=== PATIENT | male | born 1980 | race Caucasian/White ===

== ENCOUNTER 2021-07-31 12:01 | Outpatient (REF) | payer OTHER, SELFPAY | END 2021-07-31 12:02 | disposition home or self-care (01) | LOC: HO.LAB 12:01 | PROVIDERS: Visit Provider Internal Medicine | DX: Z20.822 Contact with and (suspected) exposure to COVID-19 (principal) | CPT/HCPCS: C9803; U0003; U0005 ==

== ENCOUNTER 2021-09-12 14:59 | Emergency (ER) | payer OTHER, SELFPAY ==
[2021-09-12 15:03] VITALS: BP 118/81; PULSE 94; RESP 16; TEMP 36.6; O2SAT 96; BMI 29.2
[2021-09-12 16:45] LABS: MANUAL DIFF FLAG NO
[2021-09-12 16:49] LABS: Basophils Percent Auto 0.3 % (0-2); Eosinophils Absolute Auto 0.1 X10*3/uL (0.0-0.4); Eosinophils Percent Auto 0.6 % (0-4); Hematocrit 43.2 % (42.0-52.0); Hemoglobin 14.3 g/dl (14.0-18.0); Imm Gran Abs Auto 0.04 X10*3/uL (0.00-0.03); Imm Gran Pct Auto 0.3 % (0.0-0.4); Lymphocytes Absolute Auto 0.7 X10*3/uL (1.2-4.9); Mean Corpuscular HGB Conc 33.1 g/dl (31.0-36.0); Mean Corpuscular Hemoglobin 27.4 pg (27.0-33.0); Mean Corpuscular Volume 82.9 fL (80.0-98.0); Mean Platelet Volume 9.1 fL (9.4-12.4); Monocytes Absolute Auto 0.4 X10*3/uL (0.1-1.2); Monocytes Percent Auto 3.3 % (2-11); Neutrophils Absolute Auto 10.7 x10*3/uL (2.0-8.3); Neutrophils Percent Auto 89.5 % (45-73); Platelet Count 480 X10*3/uL (160-400); Red Blood Count 5.21 X10*6/uL (4.60-5.80); Red Cell Distribution Width 12.8 % (11.0-16.0)
[2021-09-12 16:54] LABS: Appearance Urine CLEAR; Color Urine YELLOW; Glucose Urine UA NEG (NEG); Leukocyte Esterase Urine NEG (NEG); Nitrite Urine NEG (NEG); UACC Culture Trigger NO; Urine Blood NEG (NEG); Urine Ketones NEG (NEG); Urine Protein 1+ MG/DL (NEG-TRACE)
[2021-09-12 17:01] LABS: Alanine Aminotransferase 27 U/L (0-40); Albumin Level 4.9 g/dL (3.5-5.0); Alkaline Phosphatase 75 U/L (39-117); Anion Gap 10 (12-20); Aspartate Amino Transferase 26 U/L (5-37); Bilirubin Direct 0.3 mg/dL (0.0-0.5); Bilirubin Total 0.7 mg/dL (0.0-1.0); Blood Urea Nitrogen 25 mg/dL (9-16); Calcium 10.2 mg/dL (8.4-10.2); Carbon Dioxide 30 mmol/L (22-29); Chloride 104 mmol/L (96-108); Creatinine Clr Calc Pharmacy 103.8; Estimated Glomerular Filt Rate > 60; Glucose Random 118 mg/dL (60-115); Lipase 11 U/L (8-78); Sodium 140 mmol/L (135-145); Total Protein 8.2 g/dL (6.5-8.0)
[2021-09-12 17:36] LABS: RBC Urine 0-2 /HPF (0); WBC Urine 0-2 /HPF (0-4)
[2021-09-12 17:37] LABS: Mucus Urine 1+ /LPF; Squamous Epithelial Cell Urine TRACE /LPF
--- NOTE | 2021-09-12 17:51 | ED_ITS ---
HPI - Nausea/Vomiting/Diarrhea General Chief complaint: Nausea/Vomiting/Diarrhea Stated complaint: vomiting Time Seen by Provider: 09/12/21 17:51 Source: patient Mode of arrival: ambulatory History of Present Illness HPI Narrative: Patient no significant past medical history started having diarrhea earlier today assisted with nausea and vomiting and upper abdominal pain 8 times by the time patient came to the ER feeling much better no abdominal pain at this time no fever no chills no recent travels no one sick at home patient not vaccinated against COVID Related Data Allergies Allergy/AdvReac Type Severity Reaction Status Date / Time No Known Allergies Allergy Unverified 04/27/20 19:30 [No Known Allergies*] Review of Systems Verdana 4l Review of Systems: Yes all other systems are reviewed and Verdana 4d are negative [facility] Social History Social History Advance Directives: No Advance Directives Information Provided: No Physical Exam Verdana 4l Vital Signs: Verdana 4d Verdana 4d Vital Signs: Verdana 4d Verdana 4Bd Last Vital Signs Verdana 4d [employer] Officer New 4d [employer] Officer New 4d Temp 97.8 F 09/12/21 15:03 [employer] Officer New 4d Pulse 94 09/12/21 15:03 [employer] Officer New 4d Resp 16 09/12/21 15:03 BP 118/81 09/12/21 15:03 Pulse Ox 96 09/12/21 15:03 BMI result Body Mass Index 29.2 Appearance: Alert. Oriented X3. No acute distress. ENT: Pharynx normal. Oral Mucosa moist Neck: Normal inspection. Neck supple. CVS: Normal heart rate and rhythm. Pulses normal. Respiratory: No respiratory distress. Equal air entry bilateral, no wheezing/rales/rhonchi Abdomen: Soft and nontender. Bowel sounds are present, no mass palpable, no CVA tenderness Skin: Skin warm and dry. Normal skin color. Normal skin turgor. Extremities: No lower extremity edema. No calf tenderness Neuro: Oriented X 3. MDM - Nausea/Vomiting/Diarrhea MDM Narrative Medical decision making narrative: Patient with transient vomiting diarrhea feeling much better now no abdominal pain labs are stable taking p.o. fluids discharged patient home likely gastroenteritis Lab Data Attestation: I reviewed the patient's lab results. Result diagrams: 09/12/21 16:40 09/12/21 16:40 Labs: Lab Results 09/12/21 09/12/21 09/12/21 Range/Units 16:40 16:40 16:49 WBC 12.0 H (4.8-10.8) X10*3/uL RBC 5.21 (4.60-5.80) X10*6/uL Hgb 14.3 (14.0-18.0) g/dl Hct 43.2 (42.0-52.0) % MCV 82.9 (80.0-98.0) fL MCH 27.4 (27.0-33.0) pg MCHC 33.1 (31.0-36.0) g/dl RDW 12.8 (11.0-16.0) % Plt Count 480 H (160-400) X10*3/uL MPV 9.1 L (9.4-12.4) fL Immature Gran % (Auto) 0.3 (0.0-0.4) % Neut % (Auto) 89.5 H (45-73) % Lymph % (Auto) 6.0 L (20-40) % [place] % (Auto) 3.3 (2-11) % Eos % (Auto) 0.6 (0-4) % Baso % (Auto) 0.3 (0-2) % Lymph # (Auto) 0.7 L (1.2-4.9) X10*3/uL [place] # (Auto) 0.4 (0.1-1.2) X10*3/uL Eos # (Auto) 0.1 (0.0-0.4) X10*3/uL Baso # (Auto) 0.0 (0.0-0.2) X10*3/uL Abs Immat Gran (auto) 0.04 H (0.00-0.03) X10*3/uL Absolute Neuts (auto) 10.7 H (2.0-8.3) x10*3/uL Absolute Nucleated RBC 0.000 (0.0-0.012) X10*3/uL Nucleated RBC % (auto) 0.0 (0.0-0.2) /100WBC Sodium 140 (135-145) mmol/L Potassium 4.0 (3.3-5.1) mmol/L Chloride 104 (96-108) mmol/L Carbon Dioxide 30 H (22-29) mmol/L Anion Gap 10 L (12-20) BUN 25 H (9-16) mg/dL Creatinine 0.87 (0.5-1.4) mg/dL Estim Creat Clear Calc 103.8 Estimated GFR > 60 Random Glucose 118 H (60-115) mg/dL Calcium 10.2 (8.4-10.2) mg/dL Total Bilirubin 0.7 (0.0-1.0) mg/dL Direct Bilirubin 0.3 (0.0-0.5) mg/dL AST 26 (5-37) U/L ALT 27 (0-40) U/L Alkaline Phosphatase 75 (39-117) U/L Total Protein 8.2 H (6.5-8.0) g/dL Albumin 4.9 (3.5-5.0) g/dL Lipase 11 (8-78) U/L Urine Color YELLOW Urine Appearance CLEAR Urine pH 7.0 (5.0-8.0) Ur Specific [place] 1.010 (1.005-1.025) Urine Protein 1+ H (NEG-TRACE) MG/DL Urine Glucose (UA) NEG (NEG) MG/DL Urine Ketones NEG (NEG) MG/DL Urine Blood NEG (NEG) Urine Nitrite NEG (NEG) Ur Leukocyte Esterase NEG (NEG) Urine RBC 0-2 (0) /HPF Urine WBC 0-2 (0-4) /HPF Ur Squamous Epith Cells TRACE /LPF Urine Bacteria NONE /LPF Urine Mucus 1+ /LPF Discharge Plan Discharge Clinical Impression: Gastroenteritis Patient Disposition: Home, Self-Care Instructions: Acute Nausea and Vomiting (ED) Additional Instructions: Drink plenty of fluids report to pcp /ed if recurrence of symptoms Interventions: ED Discharge Assessment Last Done: 09/12/21 18:41 Discharge Date/Time: 09/12/21 18:41
== END 2021-09-12 18:41 | disposition home or self-care (01) ==
PROVIDERS: Emergency Provider Internal Medicine
DX: K52.9 Noninfective gastroenteritis and colitis, unspecified (principal); R11.2 Nausea with vomiting, unspecified; Z79.899 Other long term (current) drug therapy
CPT/HCPCS: 36415; 80048; 80076; 81001; 83690; 85025; 99283